=== PATIENT | male | born 1950 | race Caucasian/White ===

== ENCOUNTER → 2016-09-21 | Outpatient (CLI) | payer BC ==
[2016-09-21 09:02] LABS: ALT 35 U/L (21-72); AST 20 U/L (17-59); Alkaline Phosphatase 67 U/L (38-126); Anion Gap 13 mmol/L; Blood Urea Nitrogen 19 mg/dL (9-20); Calcium 9.5 mg/dL (8.4-10.2); Carbon Dioxide 29 mmol/L (22-30); Chloride 103 mmol/L (98-107); Cholesterol 135 mg/dL (<200); Glucose 159 mg/dL (74-99); HDL Cholesterol 44 mg/dL (40-60); Non-African American GFR(MDRD) >60 (>60 ml/min/1.73 sqM); Potassium 4.5 mmol/L (3.5-5.1); Sodium 145 mmol/L (137-145); Total Bilirubin 0.5 mg/dL (0.2-1.3); Total Protein 7.7 g/dL (6.3-8.2); Triglycerides 134 mg/dL (<150)
== END | disposition home or self-care (01) ==
LOC: LABWHC1 08:05
PROVIDERS: ATTEND Internal Medicine Endocrinology, Diabetes & Metabolism
DX: E11.65 Type 2 diabetes mellitus with hyperglycemia (principal)
CPT/HCPCS: 36415; 80053; 80061; 82043

== ENCOUNTER → 2016-10-02 | Outpatient (CLI) | payer BC | END | disposition home or self-care (01) | LOC: LABWHC1 12:52 | PROVIDERS: ATTEND Internal Medicine Interventional Cardiology | DX: E03.2 Hypothyroidism due to medicaments and other exogenous substances (principal); T46.2X5A Adverse effect of other antidysrhythmic drugs, initial encounter | CPT/HCPCS: 36415; 84439; 84443 ==

== ENCOUNTER → 2017-07-29 | Outpatient (CLI) | payer MEDICARE, BC ==
[2017-07-29 09:03] LABS: Basophils # (A) 0.1 k/uL (0-0.2); Basophils % (A) 1 %; Eosinophils # (A) 0.3 k/uL (0-0.7); Eosinophils % (A) 3 %; HCT 50.9 % (39.0-53.0); HGB 15.8 gm/dL (13.0-17.5); Lymphocytes # (A) 1.9 k/uL (1.0-4.8); Lymphocytes % (A) 24 %; MCH 27.2 pg (25.0-35.0); MCHC 31.1 g/dL (31.0-37.0); MCV 87.4 fL (80.0-100.0); Mean Platelet Volume 7.8; Monocytes # (A) 0.4 k/uL (0-1.0); Monocytes % (A) 6 %; Neutrophils % (A) 64 %; Platelet Count 225 k/uL (150-450); RBC 5.82 m/uL (4.30-5.90); RDW 13.5 % (11.5-15.5); WBC 7.8 k/uL (3.8-10.6)
[2017-07-29 09:21] LABS: ALT 43 U/L (21-72); AST 21 U/L (17-59); Albumin 4.3 g/dL (3.5-5.0); Alkaline Phosphatase 70 U/L (38-126); Anion Gap 11 mmol/L; Blood Urea Nitrogen 22 mg/dL (9-20); Calcium 9.7 mg/dL (8.4-10.2); Carbon Dioxide 32 mmol/L (22-30); Chloride 102 mmol/L (98-107); Cholesterol 130 mg/dL (<200); Glucose 163 mg/dL (74-99); HDL Cholesterol 38 mg/dL (40-60); LDL Cholesterol,Calculated 64 mg/dL (0-99); Potassium 4.9 mmol/L (3.5-5.1); Sodium 145 mmol/L (137-145); Total Bilirubin 0.3 mg/dL (0.2-1.3); Total Protein 7.2 g/dL (6.3-8.2); Triglycerides 138 mg/dL (<150)
[2017-07-29 09:37] LABS: T4, Free (Free Thyroxine) 1.26 ng/dL (0.78-2.19)
[2017-07-29 09:51] LABS: Prostate Specific Antigen 1.24 ng/mL (0.00-4.00)
[2017-07-29 16:39] LABS: Hemoglobin A1C 8.2 % (4.0-6.0)
== END | disposition home or self-care (01) ==
LOC: LABWHC1 08:29
PROVIDERS: ATTEND Internal Medicine Cardiovascular Disease
DX: E11.65 Type 2 diabetes mellitus with hyperglycemia (principal); Z88.8 Allergy status to other drugs, medicaments and biological substances; Z12.5 Encounter for screening for malignant neoplasm of prostate; Z20.9 Contact with and (suspected) exposure to unspecified communicable disease
CPT/HCPCS: 36415; 80053; 80061; 82043; 82570; 83036; 84153; 84439; 84443; 85025; 86803

== ENCOUNTER → 2018-02-13 | Outpatient (CLI) | payer MEDICARE, BC ==
--- NOTE | 2018-02-13 11:49 | US ---
EXAMINATION TYPE: US duplex aorta DATE OF EXAM: 02/13/2018 COMPARISON: CT 01/15/2014 CLINICAL HISTORY: Z13.9 encounter for screening I35.0 Aortic Valve... Extremely difficult and limited exam due to overlying bowel gas and patient's body habitus EXAM MEASUREMENTS: Abdominal Aorta: Proximal: 3.5 cm. Unable to visualized in transverse Mid: 3.9 x 2.2 x 2.4 cm Distal: 2.3 x 2.1 x 2.6 cm Bifurcation: Unable to visualize due to overlying bowel gas Essentially non-diagnostic exam due to overlying bowel gas and patient's body habitus. Visualized por tions of proximal and mid portion of aorta appear aneurysmal with atherosclerotic changes, however ex tremely limited evaluation. IMPRESSION: Markedly suboptimal study with suspected new aneurysmal change of the aorta roughly 3.5 c m. Advise further investigation with CTA or MRA for further evaluate and characterize.
== END | disposition home or self-care (01) ==
LOC: RADUSWWP 10:12
PROVIDERS: ATTEND Family Medicine
DX: Z13.6 Encounter for screening for cardiovascular disorders (principal); I35.0 Nonrheumatic aortic (valve) stenosis
CPT/HCPCS: 93979

== ENCOUNTER → 2018-06-17 | Outpatient (CLI) | payer MEDICARE, BC ==
[2018-06-17 15:58] LABS: Albumin 4.1 g/dL (3.80-4.90); Albumin/Globulin Ratio 1.95 (1.20-2.10); Anion Gap 9.4 mmol/L (4.00-12.00); Calcium 9.6 mg/dL (8.7-10.3); Carbon Dioxide 27.6 mmol/L (21.6-31.8); Globulin 2.1 g/dL (2.1-3.7); LDL Cholesterol,Calculated 114.8 mg/dL (0.0-131.0); Potassium 5.3 mmol/L (3.5-5.5); Total Bilirubin 0.3 mg/dL (0.3-1.2); Total Protein 6.2 g/dL (6.2-8.2); VLDL Calculation 42.2 mg/dL (5.00-40.00)
[2018-06-17 18:57] LABS: Hemoglobin A1C 9.6 % (4.0-6.0)
== END | disposition home or self-care (01) ==
LOC: LABWHC1 10:39
PROVIDERS: ATTEND Internal Medicine Endocrinology, Diabetes & Metabolism
DX: E11.65 Type 2 diabetes mellitus with hyperglycemia (principal)
CPT/HCPCS: 36415; 80053; 80061; 82043; 82570; 83036

== ENCOUNTER 2018-08-29 07:12 | Day surgery (SDC) | payer BC, MEDICARE ==
[2018-08-28 09:48] VITALS: BMI 31.9
[~2018-08-29 07:12] MED LIST: LACTATED RINGERS 1,000 ML IV SCH
[2018-08-29 07:32] VITALS: TEMP 97.1
[2018-08-29] MEDS ORDERED: LIDOCAINE 1% 20 ML VIAL (10MG/ML) FOR IV START INTRADERMA ONE (07:45)
[2018-08-29] MEDS ORDERED: LIDOCAINE 1% INJ 10MG/ML (20 ML MDV) ONE (08:12)
[2018-08-29] MEDS ORDERED: PROPOFOL 10 MG/ML 20 ML VIAL IV ONE (08:12)
--- NOTE | 2018-08-29 08:32 | P.PCN ---
Date of Procedure: 08/29/18 Procedure(s) Performed: BRIEF HISTORY: Patient is a 68-year-old pleasant male, scheduled for an elective colonoscopy as a part of variation of prior history of colon polyps. Last colonoscopy was 3-1/2 years ago and was noted to have an adenoma. PROCEDURE PERFORMED: Colonoscopy with biopsy and snare polypectomy. PREOPERATIVE DIAGNOSIS: History of colon polyps. IV sedation per Anesthesia. PROCEDURE: After informed consent was obtained, the patient, was brought into the endoscopy unit. IV sedation was administered by Anesthesia under continuous monitoring. Digital rectal examination was normal. Initially the Olympus CF- 160 flexible video colonoscope was then inserted in the rectum, gradually advanced into the cecum without any difficulty. Careful examination was performed as the scope was gradually being withdrawn. Ileocecal valve and the appendiceal orifice were visualized and appeared normal. Prep was excellent. Mucosa of the cecum, appeared normal. In the ascending colon there was a 2 mm sessile polyp that was removed by cold biopsy. In the proximal ascending colon there was a 5 mm polyp that was removed by snare polypectomy. Rest of the ascending colon, transverse colon, descending colon, sigmoid colon, and rectum appeared normal. Diffuse left sided diverticulosis seen. Retroflexion was performed in the rectum and small internal hemorrhoids were seen. The patient tolerated the procedure well. IMPRESSION: 2 mm sessile ascending colon polyp and 5 mm ascending colon polyp status post biopsy and snare polypectomy respectively Diffuse left-sided diverticulosis Small internal hemorrhoids RECOMMENDATIONS: Findings of this examination were discussed with the patient as well as his family. She should he was advised to follow with the biopsy results. If the biopsy shows adenoma, he can have a repeat coloscopy in 5 years
[2018-08-29 08:43] VITALS: RESP 18
[2018-08-29 09:26] VITALS: BP 133/79; PULSE 66
[2018-08-29 11:59] LABS: Glucose,Whole Blood 218 mg/dL (75-99)
== END 2018-08-29 09:20 | disposition home or self-care (01) ==
LOC: ORWHC2ENDO 07:12
PROVIDERS: ATTEND Internal Medicine Gastroenterology
DX: Z12.11 Encounter for screening for malignant neoplasm of colon (principal); D12.2 Benign neoplasm of ascending colon; K57.30 Diverticulosis of large intestine without perforation or abscess without bleeding; K64.8 Other hemorrhoids; Z86.010 Personal history of colon polyps; I48.91 Unspecified atrial fibrillation; I10 Essential (primary) hypertension; E78.5 Hyperlipidemia, unspecified; E11.9 Type 2 diabetes mellitus without complications; G47.33 Obstructive sleep apnea (adult) (pediatric); Z99.89 Dependence on other enabling machines and devices; Z79.82 Long term (current) use of aspirin; Z79.899 Other long term (current) drug therapy; Z79.84 Long term (current) use of oral hypoglycemic drugs; Z87.891 Personal history of nicotine dependence
CPT/HCPCS: 88305; 45380; 45385; J2001; J2704

== ENCOUNTER → 2018-09-25 | Outpatient (CLI) | payer MEDICARE ==
[2018-09-25 16:55] LABS: Albumin 4.3 g/dL (3.80-4.90); Albumin/Globulin Ratio 1.95 (1.60-3.17); Anion Gap 10.1 mmol/L (4.00-12.00); Calcium 8.8 mg/dL (8.7-10.3); Carbon Dioxide 24.9 mmol/L (21.6-31.8); Globulin 2.2 g/dL (1.6-3.3); LDL Cholesterol,Calculated 86.2 mg/dL (0.0-131.0); Potassium 4.5 mmol/L (3.5-5.5); Total Bilirubin 0.3 mg/dL (0.3-1.2); Total Protein 6.5 g/dL (6.2-8.2); VLDL Calculation 42.8 mg/dL (5.00-40.00)
[2018-09-25 16:57] LABS: Hemoglobin A1C 10.6 % (4.0-6.0)
== END | disposition home or self-care (01) ==
LOC: LABWHC1 07:49
PROVIDERS: ATTEND Internal Medicine Endocrinology, Diabetes & Metabolism
DX: E11.65 Type 2 diabetes mellitus with hyperglycemia (principal)
CPT/HCPCS: 36415; 80053; 80061; 82043; 82570; 83036

== ENCOUNTER → 2020-02-09 | Outpatient (CLI) | payer MEDICARE ==
[2020-02-09 11:53] LABS: African American GFR (CKD) 72.1 (60.0-200.0); Albumin 4.4 g/dL (3.80-4.90); Albumin/Globulin Ratio 1.91 (1.60-3.17); Anion Gap 8.6 mmol/L (4.00-12.00); BUN/Creat Ratio 18.33 Ratio (12.00-20.00); Calcium 9.5 mg/dL (8.7-10.3); Carbon Dioxide 29.4 mmol/L (21.6-31.8); Chol/HDL Ratio 4.67; Globulin 2.3 g/dL (1.6-3.3); Non-African American GFR(CKD) 62.2 (60.0-200.0); Potassium 4.8 mmol/L (3.5-5.5); Total Bilirubin 0.2 mg/dL (0.2-1.2); Total Protein 6.7 g/dL (6.2-8.2)
[2020-02-09 13:15] LABS: Urine Creatinine 66.9 mg/dL
[2020-02-09 14:48] LABS: Hemoglobin A1C 10.2 % (4.0-6.0)
== END | disposition home or self-care (01) ==
LOC: LABWHC1 07:07
PROVIDERS: ATTEND Internal Medicine Endocrinology, Diabetes & Metabolism
DX: E11.65 Type 2 diabetes mellitus with hyperglycemia (principal)
CPT/HCPCS: 36415; 80053; 80061; 82043; 82570; 83036; 84443

== ENCOUNTER → 2021-04-21 | Outpatient (CLI) | payer MEDICARE ==
[2021-04-21 19:22] LABS: African American GFR (CKD) 79.5 (60.0-200.0); Albumin 4.6 g/dL (3.8-4.9); Albumin/Globulin Ratio 1.84 (1.60-3.17); Anion Gap 14.8 mmol/L (4.00-12.00); BUN/Creat Ratio 14.82 Ratio (12.00-20.00); Blood Urea Nitrogen 16.3 mg/dL (9.0-27.0); Calcium 9.2 mg/dL (8.7-10.3); Carbon Dioxide 22.2 mmol/L (21.6-31.8); Chol/HDL Ratio 3.36 Ratio; Globulin 2.5 g/dL (1.6-3.3); HDL Cholesterol 34.8 mg/dL (40.00-60.00); LDL Cholesterol,Calculated 66.1 mg/dL (0.0-131.0); Non-African American GFR(CKD) 68.6 (60.0-200.0); Potassium 4.7 mmol/L (3.5-5.5); Total Bilirubin 0.3 mg/dL (0.30-1.20); Total Protein 7.1 g/dL (6.2-8.2); Triglycerides 80.5 mg/dL (0.00-149.00); VLDL Calculation 16.1 mg/dL (5.00-40.00)
[2021-04-22 06:20] LABS: Urine Creatinine 54.1 mg/dL (39.0-259.0)
== END | disposition home or self-care (01) ==
LOC: LABWHC1 09:19
PROVIDERS: ATTEND Internal Medicine Endocrinology, Diabetes & Metabolism
DX: E11.65 Type 2 diabetes mellitus with hyperglycemia (principal)
CPT/HCPCS: 36415; 80053; 80061; 82043; 82570; 83036; 84443

== ENCOUNTER → 2022-07-06 | Outpatient (CLI) | payer MEDICARE | END | disposition home or self-care (01) | LOC: LABWHC1 07:43 | PROVIDERS: ATTEND Internal Medicine Endocrinology, Diabetes & Metabolism | DX: Z53.9 Procedure and treatment not carried out, unspecified reason (principal) ==

== ENCOUNTER → 2022-07-06 | Outpatient (CLI) | payer MEDICARE ==
[2022-07-06 16:26] LABS: HCT 47.3 % (39.6-50.0); HGB 14.6 g/dL (13.0-17.0); MCH 26.7 pg (27.0-32.0); MCHC 30.9 g/dL (32.0-37.0); MCV 86.6 fL (80.0-97.0); Mean Platelet Volume 10.5 fL (9.5-12.2); NRBC Per 100 WBC 0 /100 WBCS (0.0-0.0); Platelet Count 295 X 10*3/uL (140-440); RBC 5.46 X 10*6/uL (4.40-5.60); RDW 13.3 % (11.5-14.5); WBC 10.44 X 10*3/uL (4.50-10.00)
[2022-07-06 17:55] LABS: ALT 23 U/L (10-49); AST 16 U/L (14-35); African American GFR (CKD) 76.7 (60.0-200.0); Albumin 4.3 g/dL (3.8-4.9); Albumin/Globulin Ratio 1.96 (1.60-3.17); Alkaline Phosphatase 57 U/L (41-126); BUN/Creat Ratio 12.41 Ratio (12.00-20.00); Blood Urea Nitrogen 13.9 mg/dL (9.0-27.0); Calcium 9.6 mg/dL (8.7-10.3); Carbon Dioxide 25.7 mmol/L (20.0-27.5); Chloride 102 mmol/L (96-109); Chol/HDL Ratio 3.74 Ratio; Globulin 2.2 g/dL (1.6-3.3); Glucose 110 mg/dL (70-110); LDL Cholesterol,Calculated 78.7 mg/dL (0.0-131.0); Non-African American GFR(CKD) 66.2 (60.0-200.0); Sodium 143 mmol/L (135-145); Total Protein 6.5 g/dL (6.2-8.2)
== END | disposition home or self-care (01) ==
LOC: LABPAT 07:44
PROVIDERS: ATTEND Internal Medicine Interventional Cardiology
DX: Z01.812 Encounter for preprocedural laboratory examination (principal); I35.0 Nonrheumatic aortic (valve) stenosis
CPT/HCPCS: 80053; 80061; 82043; 82570; 83036; 85027

== ENCOUNTER 2022-07-10 06:15 | Day surgery (SDC) | payer MEDICARE ==
[2022-07-10] MEDS ORDERED: SODIUM CHLORIDE 0.9% 1,000 ML in EMPTY BAG 1 BAG IV SCH (06:27)
[2022-07-10] MEDS ORDERED: NITROGLYCERIN SL TABS 0.4 MG TAB SUBLINGUAL PRN (06:27)
[2022-07-10] MEDS ORDERED: ALPRAZolam 0.25 MG TAB PO PRN (06:27)
[2022-07-10] MEDS ORDERED: ALPRAZolam 0.5 MG TAB PO PRN (06:27)
[2022-07-10] MEDS ORDERED: SODIUM CHLORIDE 0.9% 1,000 ML IV ONE (06:49)
[2022-07-10] MEDS ORDERED: ASPIRIN 325 MG TAB PO ONE (07:00)
[2022-07-10] MEDS ORDERED: VERAPAMIL 2.5 MG/ML 2 ML AMP ONE (07:14)
[2022-07-10] MEDS ORDERED: fentaNYL (PF) 50 MCG/ML 2 ML AMP ONE (07:14)
[2022-07-10] MEDS ORDERED: HEPARIN SODIUM 1,000 UN/ML (10ML VL) ONE (07:14)
[2022-07-10 07:16] LABS: Glucose,Whole Blood 149 mg/dL (70-110)
[2022-07-10 07:17] VITALS: RESP 16; TEMP 98.4
[2022-07-10] MEDS: BENZOCAINE SPRAY 1 CAN MUCOUS MEM ONE ×2 (07:31→07:39)
[2022-07-10] MEDS ORDERED: MIDAZOLAM 2 MG/2 ML VIAL IV ONE (07:39)
[2022-07-10] MEDS: fentaNYL (PF) 50 MCG/ML 2 ML AMP IV ONE ×2 (07:39→07:43)
[2022-07-10] MEDS: MIDAZOLAM 2 MG/2 ML VIAL IV ONE ×2 (07:43→08:05)
--- NOTE | 2022-07-10 08:00 | P.PCN ---
Date of Procedure: 07/10/22 Operative Findings: TRANSESOPHAGEAL ECHOCARDIOGRAM BUILDING CONSTRUCTION PROFESSOR: ADARSH JUDGE MD, RPVI INDICATION: Aortic stenosis SEDATION: Conscious sedation COMPLICATION: None LEVEL OF SEDATION Moderate to sedation length of 12 minutes PROCEDURE DESCRIPTION: After obtaining an informed consent, the patient was brought to transesophageal echocardiogram room. Pulse oximetry and heart monitors were attached to the patient. The patient throat was sprayed using lidocaine. The patient was turned into left lateral position. After that a bite guard was placed. After an appropriate conscious sedation was initiated, the transesophageal echocardiogram was advanced through a bite guard into the mid esophagus. A 2-D echocardiogram images, color Doppler images, continuous wave images, pulse-wave images, of various cardiac structure were performed. After that the transesophageal echocardiogram probe was advanced into the stomach and fixed to obtain transgastric view was. The probe was brought into the mid esophagus. Inter-atrial septum was interrogated using 2D images, color Doppler images, and then contrast study. After that transesophageal echocardiogram was withdrawn out and upon withdrawing the descending thoracic aorta all the way up to the arch was evaluated. FINDING: Left ventricular dimension and systolic function appeared to be within normal limits. Ejection fraction appears to be in the range of 55-60%. The right ventricle appeared to be of normal size and function. The aortic valve is bioprosthetic valve was evidence of severe aortic stenosis with a mean gradient of 40 mmHg and peak gradient of 70 mmHg and peak systolic velocity above 4 m/s. Mitral valve is mildly thickened with mild MR. Normal tricuspid valve and pulmonic valve. No evidence of pericardial effusion CONCLUSION: 1. Normal left ventricular dimension and systolic function. Mild concentric LVH 2. And moderate right ventricular dimension and systolic function. 3. Bioprosthetic aortic valve was evidence of severe aortic stenosis. Mean gradient is 40 mmHg and peak gradient of 70 mmHg and peak systolic velocities above 4 m/s 4. Normal mitral valve leaflets with mild MR 5. Normal tricuspid valve and pulmonic valve 6. No evidence of pericardial effusion
[2022-07-10] MEDS ORDERED: LIDOCAINE 1% INJ 10MG/ML (5 ML VIAL-PF) SQ ONE (08:03)
[2022-07-10] MEDS ORDERED: VERAPAMIL SYRINGE (5 MG/10 ML) INTRAARTER ONE (08:05)
[2022-07-10] MEDS: HEPARIN SODIUM 1,000 UN/ML (10ML VL) IV ONE ×2 (08:07→08:15)
[2022-07-10] MEDS ORDERED: IV FLUID CONTINUATION 1,000 ML IV ONE (08:16)
[2022-07-10] MEDS ORDERED: RX INFO: IV CONTRAST WAS GIVEN 1 EACH MISC MISCELLANE PRN (08:23)
--- NOTE | 2022-07-10 08:28 | P.PCN ---
Date of Procedure: 07/10/22 Operative Findings: CARDIAC CATHETERIZATION PERFORMING PHYSICIAN: Francisco Lombardo MD, RPVI PROCEDURE PERFORMED: 1. Selective right and left coronary angiogram 2. iFR of the RCA INDICATION: Aortic stenosis COMPLICATION: None APPROACH: Right radial artery LEVEL OF SEDATION: Moderate with a sedation length of 17 minutes PROCEDURE DESCRIPTION: After obtaining an informed consent, the patient was brought to cardiac orthodontic lab technician. Local anesthesia was performed using lidocaine subcutaneously. The right radial artery was cannulated using Seldinger technique, the guidewire passed easily, following that we advanced a 5-[place] sheath dilator assembly, the wire and dilator were removed and sheath was flushed. Following that, 2 mg of verapamil along with 5000 unit heparin were given. Selective right and left coronary angiogram using a 6-[place] JR4 and JL 3.5 catheters. The procedure was completed there was no complication. SELECTIVE CORONARY ANGIOGRAM: The right coronary artery: Large caliber vessel and a dominant vessel. The RCA has intermediate lesion in the midportion appears to be in the range of 60%. I did on it and FFR and that came in to be ischemic and 0.69. Left main: Is angiographicallyormal. Bifurcates into LCx and LAD The left circumflex: Large caliber vessel nondominant vessel. The LCx system has mild disease only. The left anterior descending artery: Large-caliber vessel. The LAD has mild to moderate disease only. iFR OF THE RCA: Anticoagulation was initiated using heparin with continuous ACT monitoring. After zeroing the Doppler wire and equalizing between the Doppler wire and the guiding catheter which was JR4 guiding catheter we did iFR at that came in to be ischemic 0.69 CONCLUSION: 1. Intermediate disease involving the mid RCA. iFR was ischemic at 0.69 2. Mild to moderate nonobstructive disease involving the left coronary system POSTPROCEDURE MANAGEMENT: Assess the need to have the aortic valve replaced either surgically or percutaneously.
[2022-07-10] MEDS ORDERED: IOPAMIDOL-370 125ML BTL INJ ONE (08:30)
[2022-07-10] MEDS ORDERED: SODIUM CHLORIDE 0.9% 1,000 ML IV SCH (08:30)
[2022-07-10 14:28] VITALS: BP 150/66; PULSE 72
== END 2022-07-10 13:35 | disposition home or self-care (01) ==
LOC: CATHCVL 06:15
PROVIDERS: ATTEND Internal Medicine Interventional Cardiology
DX: I35.0 Nonrheumatic aortic (valve) stenosis (principal)
CPT/HCPCS: 93312; 93320; 93325; 93454; 93799; C1887; C1769 ×2; C1894; J2250; J2001; J3010; J1644; Q9967